=== PATIENT | male | born 1955 | race Caucasian/White ===

== ENCOUNTER → 2016-09-16 | Outpatient (CLI) | payer BC ==
[~2016-09-16] MED LIST: ASPI81TA28 PO; FINA5TAB PO; FLUO40CA8 PO; TAMS0.4C38 PO
== END | disposition home or self-care (01) ==
LOC: C.PATHSPEC 17:02
PROVIDERS: ATTEND Urology
DX: R97.20 Elevated prostate specific antigen [PSA] (principal)

== ENCOUNTER → 2017-05-26 | Outpatient (CLI) | payer BC ==
[~2017-05-26] MED LIST changes: +ACET-749 PO; +CIPR-255 PO; +PHEN95TA14 PO
== END | disposition home or self-care (01) ==
LOC: C.LABSPEC 17:07
PROVIDERS: ATTEND Urology
DX: N40.1 Benign prostatic hyperplasia with lower urinary tract symptoms (principal)

== ENCOUNTER 2017-06-10 21:33 | Emergency (ER) | payer BC ==
[~2017-06-10] VITALS: Ht 182.9 cm; Wt 95.8 kg
[~2017-06-10 21:33] MED LIST changes: -ACETAMINOPHEN 325 MG TAB PO PRN; -ATROPINE SULFATE 0.1 MG/ML 5ML SYR IV PRN; -CIPROFLOXACIN / D5W 400 MG IV SCH; -EpHEDrine SULFATE INJ 50 MG/ML AMP IV PRN; -FENTANYL CITRATE INJ 50 MCG/1 ML 2 ML VIAL IV PRN; -FENTANYL CITRATE INJ 50 MCG/1 ML 2 ML VIAL ONE; -FLUMAZENIL 0.1 MG/1 ML 10 ML VIAL IV ONE; -GLYCOPYRROLATE INJ 0.2 MG/ML VIAL ONE; -LACTATED RINGER'S 1000ML 1,000 ML IV SCH; -LIDOCAINE HCL 2% 2 ML VIAL (20MG/ML) ONE; -MIDAZOLAM HCL 1 MG/ML 2ML VIAL ONE; -ONDANSETRON INJ 2 MG/ML 2 ML VIAL IV PRN; -OXYCODONE/ACETAMINOPHEN 5-325 TAB PO PRN; -PROPOFOL IV EMULSION 10 MG/ML 20 ML VIAL IV ONE; -SODIUM CHLORIDE 0.9% 1000ML 1,000 ML IV SCH
[2017-06-10 22:00] VITALS: TEMP 36.9; Ht 182.9 cm; Wt 95.8 kg
[2017-06-10 23:10] LABS: URINE APPEARANCE CLOUDY (CLEAR); URINE BILIRUBIN NEG (NEG); URINE COLOR ORANGE; URINE EPITHELIAL CELL AUTO 0-5 /lpf (0-5); URINE NITRITE POS (NEG); URINE PH 6.5 (4.5-7.5); URINE SPECIFIC GRAVITY 1.013 (1.000-1.030); UROBILINOGEN NEG (NEG)
[2017-06-10 23:11] LABS: MANUAL MICROSCOPIC REQUIRED? NO; REVIEW REQ? NO
[2017-06-11] VITALS: BP 109/72; PULSE 71; O2SAT 99
--- NOTE | 2017-06-12 00:49 | EMERGENCY ROOM VISIT NOTE ---
ED Visit Note First contact with patient: 22:39 Chief Complaint: I can't urinate. History of Present Illness: Mr. Gillette is a 61-year-old white male who ambulates into the ED accompanied by his with complaints of urinary retention. Patient reports earlier today, approximately 6 hours ago he reports he had a urolift for his enlarged prostrate performed by Dr. Cordova. He does report after returning home he was able to urinate. But since 6 PM, 4 hours ago, he reports he has not been able to urinate. Since that time he reports she's been having increasing urge to urinate but has been unsuccessful. He started experiencing suprapubic pain and it has gradually increased in intensity. Currently he describes his discomfort as a pressure sensation. He rates his discomfort 10/10. His pain is nonradiating. His pain worsens with palpation of the suprapubic area and while he was driving over the hospital bumps in the road also increased his pain. He has not able to identified any alleviating factors related to the pain. He has not taken any medications for pain prior to arrival at the hospital. He denies any associated symptoms including fevers , chills, sweats, skin eruptions, skin color changes, upper abdominal pain, back /flank pain. Review of Systems: As noted above in history of present illness. 8 body systems were reviewed and found to be negative as noted above. Past Medical History: Benign prostatic hypertrophy, status post unspecified hernia repair. Current Medications: Medications Dose Route/Sig Max Daily Dose Days Date Category Tylenol W/Codeine #3 (Acetaminophen/Codeine Phosphate) 300 Mg/30 Mg Tab 2 Tab PO Q6H PRN 06/10/17 Rx Cipro (Ciprofloxacin Hcl) 500 Mg Tab 500 Mg PO BID 06/10/17 Rx Azo Tabs (Phenazopyridine Hcl) 95 Mg Tab 2 Tabs PO Q8 06/10/17 Rx Flomax (Tamsulosin Hcl) 0.4 Mg Cap 0.4 Mg PO BID 06/03/17 Reported Prozac (Fluoxetine HCl) 40 Mg Cap 40 Mg PO QPM 06/03/17 Reported Proscar (Finasteride) 5 Mg Tab 5 Mg PO QPM 06/03/17 Reported Aspirin Ec (Aspirin) 81 Mg Tab 81 Mg PO ON HOLD 06/03/17 Reported Allergies to Medications: Penicillin, sulfa. Social History: Patient is currently employed; he lives with his and feels safe in his home environment; he denies tobacco use and admits to alcohol use. Physical Examination: Vital Signs: Date Time Temp Pulse Resp B/P (MAP) Pulse Ox O2 Delivery O2 Flow Rate FiO2 06/11/17 00:00 71 16 109/72 99 06/10/17 22:00 36.9 84 18 174/105 96 Room Air GENERAL: 61-year-old male in moderate distress due to pain, nontoxic-appearing, afebrile and hemodynamically stable. NEUROLOGICAL: Awake, alert and oriented to person, place and time. Answering questions appropriately and following commands. Normal gait. Good hand eye coordination. No focal motor sensory deficits. SKIN: Warm, dry and pink. No soft tissue eruptions or trauma noted. HEENT: Atraumatic and normocephalic. PERRLA. Sclera white and conjunctiva pink. Airway patent. Speech normal. No lymphadenopathy. Trachea midline. No jugular venous distention. BACK: No tenderness over the bony spine. No CVA tenderness. THORAX: Lungs sounds are clear to auscultation and equal bilaterally with symmetrical chest wall. No crepitus, tenderness, subcutaneous air or deformities noted. HEART: Regular rate and rhythm. No gallops, rubs or murmurs are appreciated. ABDOMEN: Suprapubic distention, soft with moderate to severe tenderness throughout the suprapubic area. Decreased bowel sounds in all quadrants. No guarding, rigidity or organomegaly. EXTREMITIES: Moves all extremities well on command and with purpose. All distal neurovascular statuses are intact and equal bilaterally. ED Course: Patient is assessed as noted above. Patient's medication list was reviewed. Laboratory Testing: Test 06/10/17 22:20 Range/Units Urine Color ORANGE Urine Appearance CLOUDY CLEAR Urine pH 6.5 4.5-7.5 Urine Specific [place] 1.013 1.000-1.030 Urine Protein 2+ NEG Urine Glucose (UA) NEG NEG Urine Ketones NEG NEG Urine Occult Blood 3+ NEG Urine Nitrite POS NEG Urine Bilirubin NEG NEG Urine Urobilinogen NEG NEG Urine Leukocyte Esterase SMALL NEG Urine WBC (Auto) 1-5 0-5 /hpf Urine RBC (Auto) >30 0-4 /hpf Urine Hyaline Casts (Auto) 1-5 0-5 /lpf Urine Epithelial Cells (Auto) 0-5 0-5 /lpf Urine Bacteria (Auto) NEG NEG Cath Urine Culture: Pending. Bladder Scan: 1100 mL. A Espinal catheter was inserted without difficulty and a year-old bag was placed on the catheter. Prior to discharge patient's catheter put out over 1300 mL of bloody urine. Patient was reassessed multiple times during his stay in the emergency department. Patient was educated about today's findings and instructed on his treatment plan ; he verbalized understanding and agreement with this plan. Clinical Impression: Acute urinary retention. Hematuria. Disposition: Patient discharged home in stable condition accompanied by his ; prior to departure he was reassessed and subjectively reported he was pain and symptom-free. Plan: Patient was encouraged to continue his current medications per Patient was encouraged to stay well-hydrated with clear fluid. Patient was encouraged to call Dr. Cordova in the morning and inform them of today's ED visit and request follow-up care. Patient was encouraged return ED for any return of bladder distention symptoms, fevers, vomiting, worsening hematuria or any new/concerning symptoms.
== END 2017-06-11 00:01 | disposition home or self-care (01) ==
LOC: C.EDB 21:34 → C.EDC 06-11 00:01
DX: R33.9 Retention of urine, unspecified (principal); R31.9 Hematuria, unspecified; N40.0 Benign prostatic hyperplasia without lower urinary tract symptoms; Z98.890 Other specified postprocedural states; Z79.899 Other long term (current) drug therapy

== ENCOUNTER → 2017-06-10 | Day surgery (SDC) | payer BC ==
[2017-06-03 12:42] VITALS: BMI 28.0
--- NOTE | 2017-06-03 12:55 | PAT Medication Instructions ---
Service Date Jun 03, 2017. Current Home Medication List Aspirin (Aspirin Ec), 81 MG PO QPM Finasteride (Proscar), 5 MG PO QPM Fluoxetine (Prozac), 40 MG PO QPM Tamsulosin Hcl (Flomax), 0.4 MG PO BID Medication Instructions For Your Scheduled Surgery - Holding the following medications 10 days prior to surgery per surgeon's instructions: Aspirin (Aspirin Ec), 81 MG PO QPM - Take the following medications the morning of surgery with a sip of water OTHERWISE NOTHING TO EAT OR DRINK AFTER MIDNIGHT: Tamsulosin Hcl (Flomax), 0.4 MG PO BID - Take the following medications as scheduled the night before surgery: Finasteride (Proscar), 5 MG PO QPM Fluoxetine (Prozac), 40 MG PO QPM Tamsulosin Hcl (Flomax), 0.4 MG PO BID If you have any questions please call us at [phone] or [phone] or [phone]
--- NOTE | 2017-06-03 13:29 | DIAGNOSTIC IMAGING REPORT ---
CHEST 2 VIEWS ROUTINE CLINICAL HISTORY: 61 years-old Male presenting with preoperative assessment. TECHNIQUE: PA and lateral views of the chest were obtained. COMPARISON: None. FINDINGS: Cardiomediastinal silhouette normal. Mild hyperinflation. No focal infiltrate. No effusion or pneumothorax. Exaggerated thoracic kyphosis without a focal wedging deformity. Upper abdomen normal. IMPRESSION: 1. No acute cardiopulmonary disease. Electronically signed by: Jozef Saravia M.D. 06/03/2017 1:28 PM Dictated Date/Time: 06/03/2017 1:27 PM
[2017-06-03 13:31] LABS: BASO % 0.6 %; BASO ABS # 0.03 K/uL (0-0.2); COMPLETE YES; EOS % 3.9 %; IG% 0.2 %; LYMPH % 36.4 %; LYMPH ABS # 1.95 K/uL (1.2-3.4); MEAN CELL VOLUME 93.3 fL (80-100); MEAN CORPUSCULAR HGB CONC 32.1 g/dl (32-36); MEAN PLATELET VOLUME 9.5 fL (7.4-10.4); MONO % 8.6 %; NEUT % 50.3 %; PLATELET COUNT 244 K/uL (130-400); WHITE BLOOD COUNT 5.35 K/uL (4.8-10.8)
[2017-06-03 14:31] LABS: CALCIUM 8.6 mg/dl (8.5-10.1); CREATININE 1.2 mg/dl (0.60-1.40); POTASSIUM 4.2 mmol/L (3.5-5.1)
[~2017-06-10] VITALS: Ht 182.9 cm; Wt 95.6 kg
[~2017-06-10] MED LIST changes: +ACETAMINOPHEN 325 MG TAB PO PRN; +ATROPINE SULFATE 0.1 MG/ML 5ML SYR IV PRN; +CIPROFLOXACIN / D5W 400 MG IV SCH; +EpHEDrine SULFATE INJ 50 MG/ML AMP IV PRN; +FENTANYL CITRATE INJ 50 MCG/1 ML 2 ML VIAL IV PRN; +FENTANYL CITRATE INJ 50 MCG/1 ML 2 ML VIAL ONE; +FLUMAZENIL 0.1 MG/1 ML 10 ML VIAL IV ONE; +GLYCOPYRROLATE INJ 0.2 MG/ML VIAL ONE; +LACTATED RINGER'S 1000ML 1,000 ML IV SCH; +LIDOCAINE HCL 2% 2 ML VIAL (20MG/ML) ONE; +MIDAZOLAM HCL 1 MG/ML 2ML VIAL ONE; +ONDANSETRON INJ 2 MG/ML 2 ML VIAL IV PRN; +OXYCODONE/ACETAMINOPHEN 5-325 TAB PO PRN; +PROPOFOL IV EMULSION 10 MG/ML 20 ML VIAL IV ONE; +SODIUM CHLORIDE 0.9% 1000ML 1,000 ML IV SCH
[2017-06-10 08:17] VITALS: BP 140/83; PULSE 64; TEMP 36.9; O2SAT 94; Ht 182.9 cm; Wt 95.6 kg
--- NOTE | 2017-06-10 09:56 | History & Physical Bridge Note ---
H&P Re-Evaluation Bridge Note: I have examined the patient, reviewed the History & Physical and in the interval since the performance of the History & Physical I have noted the following changes of clinical significance: No changes noted
--- NOTE | 2017-06-10 10:38 | [facility] Operative Report ---
Operative Report Operative Date Jun 10, 2017. Pre-Operative Diagnosis Benign prostatic hyperplasia Post-Operative Diagnosis Same Procedure(s) Performed Cystoscopy, Urolift Surgeon Orthopedic Designer Surgeon(s) None Estimated Blood Loss 0ML Findings Lateral lobe hypertrophy with a slight median bar Specimens None per surgeon Drains none Anesthesia MAC Complication(s) None Disposition Recovery Room / PACU (stable) Indications Voiding dysfunction, BPH Description of Procedure Patient was identified in the preoperative holding area, appropriate informed consents were reviewed and completed and the patient was transported to the operating suite. Upon arrival he received appropriate preoperative antibiotics in the form of ciprofloxacin. Adequate sedation was achieved, and he was placed in dorsal lithotomy position where he was sterilely prepped and draped in standard fashion. I began the case by passing a cystoscope with 0 lens. Inspection of the urethra revealed healthy-appearing mucosa without evidence of strictures. Prostate was inspected, and he was noted to have lateral lobe hypertrophy. Full inspection of the bladder was carried out. There were no tumors, stones, or other abnormalities. I then exchanged visual obturator for the first uro-lift device. The first suture was deployed on the right side of the prostate approximately 1 cm in from the bladder neck. A mirror image suture was then deployed on the left. A third suture was placed adjacent to the verumontanum on the right. A fourth suture was placed in a mirror image of this location on the left. There was excellent hemostasis. I reinspected the bladder and prostate and confirmed an excellent anterior channel. The bladder was decompressed and the case conclude. The patient was reversed from anesthesia and take to recovery in stable condition. I attest to the content of the Intraoperative Record and any orders documented therein. Any exceptions are noted below.
[2017-06-10 10:40] VITALS: BP 145/78; PULSE 85; TEMP 36.4; O2SAT 93
--- NOTE | 2017-06-10 10:41 | Discharge Instructions ---
Discharge Instructions Date of Service Jun 10, 2017. Admission Reason for Admission: Benign Prostatic Hyperlasia Discharge Discharge Diagnosis / Problem: BPH Discharge Goals Goal(s): Decrease discomfort, Improve function, Increase independence, Improve disease control, Prevent Disease Progression Activity Recommendations Activity Limitations: resume your previous activity Lifting Limitations: none Exercise/Sports Limitations: none May Resume Sexual Activity: when tolerated Shower/Bathe: no limitations Driving or Machine Use: resume 1 day after discharge . Instructions / Follow-Up Instructions / Follow-Up Please keep your previously scheduled follow up appointment with Dr. Cordova Discharge Diet Recommended Diet: Regular Diet Procedures Procedures Performed: Cystoscopy, Urolift Pending Studies Studies pending at discharge: no Medical Emergencies . Who to Call and When: Medical Emergencies: If at any time you feel your situation is an emergency, please call 911 immediately. . Non-Emergent Contact Non-Emergency issues call your: Urologist Call Non-Emergent contact if: you have a fever, temperature is above 101.5, your pain is not controlled, your pain is worsening . . "Provider Documentation" section prepared by Rolando Carlin. . VTE Core Measure Inpt VTE Proph given/why not?: Treatment not indicated [place] Drug Monitoring Program Search Results: patient reviewed within database, no issues identified
--- NOTE | 2017-06-10 11:00 | Anesthesiology Progress Note ---
Anesthesia Post Op Note Date & Time Jun 10, 2017 at 11:00 Vital Signs Pain Intensity: 0 Vital Signs Past 12 Hours Date Time Temp Pulse Resp B/P (MAP) Pulse Ox O2 Delivery O2 Flow Rate FiO2 06/10/17 10:40 36.4 85 18 145/78 93 Room Air 06/10/17 08:17 36.9 64 18 140/83 (102) 94 Room Air Notes Mental Status: alert / awake / arousable, participated in evaluation Pt Amnestic to Procedure: Yes Nausea / Vomiting: adequately controlled Pain: adequately controlled Airway Patency, RR, SpO2: stable & adequate BP & HR: stable & adequate Hydration State: stable & adequate Anesthetic Complications: no major complications apparent
[2017-06-10 11:10] VITALS: BP 144/91; PULSE 87; O2SAT 95
== END | disposition home or self-care (01) ==
LOC: C.ACU 07:42
PROVIDERS: ATTEND Urology
DX: N40.1 Benign prostatic hyperplasia with lower urinary tract symptoms (principal); N13.8 Other obstructive and reflux uropathy; Z88.2 Allergy status to sulfonamides; Z88.0 Allergy status to penicillin; Z85.828 Personal history of other malignant neoplasm of skin; Z79.82 Long term (current) use of aspirin; Z68.28 Body mass index [BMI] 28.0-28.9, adult

== ENCOUNTER → 2017-11-11 | Outpatient (CLI) | payer BC | END | disposition home or self-care (01) | LOC: C.LABSPEC 16:05 | PROVIDERS: ATTEND Physician Assistant | DX: B35.1 Tinea unguium (principal) ==

== ENCOUNTER → 2017-12-09 | Day surgery (SDC) | payer BC ==
[2017-11-20 08:10] VITALS: BMI 28.0
--- NOTE | 2017-11-20 08:40 | PAT Medication Instructions ---
Service Date Nov 20, 2017. Current Home Medication List Aspirin (Aspirin Ec), 81 MG PO QPM Finasteride (Proscar), 5 MG PO QPM Fluoxetine (Prozac), 40 MG PO QPM Multivitamin (Multivitamin), 1 TAB PO QPM Tamsulosin Hcl (Flomax), 0.4 MG PO BID Medication Instructions For Your Scheduled Surgery -Hold the following medications per your surgeon's instructions: Aspirin (Aspirin Ec), 81 MG PO QPM - Hold the following medications the morning of surgery: Tamsulosin Hcl (Flomax), 0.4 MG PO BID - Take the following medications as scheduled the night before surgery: Finasteride (Proscar), 5 MG PO QPM Fluoxetine (Prozac), 40 MG PO QPM Multivitamin (Multivitamin), 1 TAB PO QPM Tamsulosin Hcl (Flomax), 0.4 MG PO BID If you have any questions please call us at [phone] or [phone] or [phone]
[2017-11-20 10:18] LABS: BASO ABS # 0.06 K/uL (0-0.2); EOS % 3.9 %; EOS ABS # 0.23 K/uL (0-0.5); HEMATOCRIT 42.5 % (42-52); HEMOGLOBIN 14.2 g/dL (14.0-18.0); IG# 0.01 K/uL (0.00-0.02); LYMPH % 28.9 %; MEAN CELL VOLUME 92.8 fL (80-100); MEAN CORPUSCULAR HGB CONC 33.4 g/dl (32-36); MEAN PLATELET VOLUME 9.7 fL (7.4-10.4); MONO % 10.2 %; NEUT % 55.8 %; NEUT ABS # 3.29 K/uL (1.4-6.5); PLATELET COUNT 273 K/uL (130-400); RED CELL DISTRIBUTION WIDTH CV 13.9 % (11.5-14.5); RED CELL DISTRIBUTION WIDTH SD 47.4 fL (36.4-46.3); WHITE BLOOD COUNT 5.89 K/uL (4.8-10.8)
[2017-11-20 11:25] LABS: CALCIUM 8.8 mg/dl (8.5-10.1); CREATININE 1.01 mg/dl (0.60-1.40); POTASSIUM 4.4 mmol/L (3.5-5.1)
[~2017-12-09] VITALS: Ht 182.9 cm; Wt 95.3 kg
[~2017-12-09] MED LIST changes: -ACET-749 PO; +ACETAMINOPHEN 325 MG TAB PO PRN; +ATROPINE SULFATE 0.1 MG/ML 5ML SYR IV PRN; +CIPROFLOXACIN / D5W 400 MG IV SCH; +EpHEDrine SULFATE 50MG/5ML SYR ONE; +EpHEDrine SULFATE INJ 50 MG/ML AMP IV PRN; +FENTANYL CITRATE INJ 50 MCG/1 ML 2 ML VIAL IV PRN; +FENTANYL CITRATE INJ 50 MCG/1 ML 2 ML VIAL ONE; +HYDROCODONE/ACETAMIN 5/325MG TAB ONE; +HYDROCODONE/ACETAMIN 5/325MG TAB PO PRN; +LACTATED RINGER'S 1000ML 1,000 ML IV SCH; +LIDOCAINE HCL 2% 2 ML VIAL (20MG/ML) ONE; +MIDAZOLAM HCL 1 MG/ML 2ML VIAL ONE; +MULT-506 PO; +ONDANSETRON INJ 2 MG/ML 2 ML VIAL IV PRN; +PROPOFOL IV EMULSION 10 MG/ML 20 ML VIAL IV ONE; +SODIUM CHLORIDE 0.9% 1000ML 1,000 ML IV SCH
[2017-12-09 10:36] VITALS: BP 136/91; PULSE 65; TEMP 36.6; O2SAT 96; Ht 182.9 cm; Wt 95.3 kg
--- NOTE | 2017-12-09 12:08 | [facility] Operative Report ---
Operative Report Operative Date Dec 09, 2017. Pre-Operative Diagnosis Benign Prostatic Hyperplasia with Urinary Obstruction Post-Operative Diagnosis Same as preop Procedure(s) Performed Button Transurethral Resection Prostate; Cystoscopy Surgeon Dr. Cordova Engineer Technician Surgeon(s) none Estimated Blood Loss 10 ml Specimens None per Surgeon Drains 22F catheter Anesthesia Type General Complication(s) none Disposition yes Recovery Room / PACU Indications Voiding dysfunction Description of Procedure Patient was identified in the preoperative holding area, appropriate informed consents reviewed and completed and the patient was transported to the operating suite. Upon arrival he received appropriate preoperative antibiotics in the form of ciprofloxacin. Adequate general anesthesia was achieved and he was placed in dorsal lithotomy position where he was sterilely prepped and draped in standard fashion. I began the case by passing a 27 Australian resectoscope with 30 lens and visual twx operator. He has no evidence of urethral stricture disease. He is status post prior uro-lift, however it appears that he has enough redundant tissue to collapse the prostatic urethra again. He has a moderately high bladder neck. Full inspection of the bladder was carried out utilizing a 30 and 70 lens, no abnormalities were appreciated. Ureteral orifices were in orthotopic position. I then exchanged the visual obturator for a working element and chose to use a button electrode. I made an incision in the bladder neck at 5 and 7:00 extending this from the bladder neck back to the verumontanum. Caution was used to avoid encroachment upon the ureteral orifices. I then resected the tissue between these 2 incisions flattening about the bladder neck. This drastically improved the appearance of the bladder neck and the patency of the prostatic urethra. I continued to resect the lateral lobes beginning first with the patient's left lobe followed by the right lobe. I encountered the uro-lift suture and clips on both sides and successfully cut the stitch and removed the clips. I then completed my case by trimming the apical tissue and ensuring excellent hemostasis. To conclude the case, I left the bladder full withdrew the cystoscope and placed a 22 Australian Espinal catheter. There were no complications, the patient tolerated the procedure well and was taken to the PACU in stable condition. I attest to the content of the Intraoperative Record and any orders documented therein. Any exceptions are noted below.
--- NOTE | 2017-12-09 12:14 | Discharge Instructions ---
Discharge Instructions Date of Service Dec 09, 2017. Admission Reason for Admission: Benign Prostatic Hypertrophy Discharge Discharge Diagnosis / Problem: BPH Discharge Goals Goal(s): Decrease discomfort, Improve function, Increase independence, Improve disease control, Prevent Disease Progression Activity Recommendations Activity Limitations: resume your previous activity Lifting Limitations: none Exercise/Sports Limitations: none May Resume Sexual Activity: when tolerated Shower/Bathe: no limitations Driving or Machine Use: resume 1 day after discharge . Instructions / Follow-Up Instructions / Follow-Up Please come to Dr. Cordova's office tomorrow for catheter removal. Current Hospital Diet Patient's current hospital diet: Discharge Diet Recommended Diet: Regular Diet Procedures Procedures Performed: Button Transurethral Resection Prostate; Cystoscopy Pending Studies Studies pending at discharge: no Medical Emergencies . Who to Call and When: Medical Emergencies: If at any time you feel your situation is an emergency, please call 911 immediately. . Non-Emergent Contact Non-Emergency issues call your: Urologist Call Non-Emergent contact if: you have a fever, temperature is above 101.5, your pain is not controlled, your pain is worsening . . "Provider Documentation" section prepared by Rolando Carlin. .
[2017-12-09 13:02] VITALS: BP 141/74; PULSE 73; TEMP 36.5; O2SAT 98
--- NOTE | 2017-12-09 13:05 | Anesthesiology Progress Note ---
Anesthesia Post Op Note Date & Time Dec 09, 2017 at 13:05 Vital Signs Pain Intensity: 2 Vital Signs Past 12 Hours Date Time Temp Pulse Resp B/P (MAP) Pulse Ox O2 Delivery O2 Flow Rate FiO2 12/09/17 12:50 142/88 12/09/17 12:47 73 11 12/09/17 12:47 73 11 98 12/09/17 12:45 125/86 12/09/17 12:43 36.0 72 18 132/76 (99) 95 Nasal Cannula 2 12/09/17 12:42 76 9 12/09/17 12:42 76 9 99 12/09/17 12:40 132/76 12/09/17 12:37 83 15 12/09/17 12:37 86 15 90 12/09/17 12:35 141/90 12/09/17 12:32 81 14 12/09/17 12:32 81 14 92 12/09/17 12:31 90 14 91 12/09/17 12:31 88 14 12/09/17 12:30 132/90 12/09/17 12:26 85 15 12/09/17 12:26 83 15 90 12/09/17 12:25 132/90 12/09/17 12:21 80 9 12/09/17 12:21 79 9 91 12/09/17 12:20 133/80 12/09/17 12:16 79 20 12/09/17 12:16 78 20 95 12/09/17 12:15 141/87 12/09/17 12:12 136/85 12/09/17 12:11 88 18 92 12/09/17 12:11 87 18 12/09/17 12:11 36.0 83 16 136/85 (95) 98 Oxymask 10 12/09/17 10:36 36.6 65 18 136/91 (106) 96 Room Air Notes Mental Status: alert / awake / arousable, participated in evaluation Pt Amnestic to Procedure: Yes Nausea / Vomiting: adequately controlled Pain: adequately controlled Airway Patency, RR, SpO2: stable & adequate BP & HR: stable & adequate Hydration State: stable & adequate Anesthetic Complications: no major complications apparent
[2017-12-09 13:30] VITALS: BP 147/85; PULSE 82; O2SAT 97
[2017-12-09 14:00] VITALS: BP 132/85; PULSE 88; TEMP 36.6; O2SAT 92
== END | disposition home or self-care (01) ==
LOC: C.ACU 09:51
PROVIDERS: ATTEND Urology
DX: N40.1 Benign prostatic hyperplasia with lower urinary tract symptoms (principal); N13.8 Other obstructive and reflux uropathy; F41.9 Anxiety disorder, unspecified; Z85.828 Personal history of other malignant neoplasm of skin; Z82.49 Family history of ischemic heart disease and other diseases of the circulatory system; Z80.42 Family history of malignant neoplasm of prostate; Z84.1 Family history of disorders of kidney and ureter; Z88.0 Allergy status to penicillin; Z88.2 Allergy status to sulfonamides; Z79.82 Long term (current) use of aspirin

== ENCOUNTER → 2018-01-20 | Outpatient (CLI) | payer BC ==
[~2018-01-20] MED LIST changes: -ACETAMINOPHEN 325 MG TAB PO PRN; -ATROPINE SULFATE 0.1 MG/ML 5ML SYR IV PRN; -CIPROFLOXACIN / D5W 400 MG IV SCH; -EpHEDrine SULFATE 50MG/5ML SYR ONE; -EpHEDrine SULFATE INJ 50 MG/ML AMP IV PRN; -FENTANYL CITRATE INJ 50 MCG/1 ML 2 ML VIAL IV PRN; -FENTANYL CITRATE INJ 50 MCG/1 ML 2 ML VIAL ONE; -FINA5TAB PO; -HYDROCODONE/ACETAMIN 5/325MG TAB ONE; -HYDROCODONE/ACETAMIN 5/325MG TAB PO PRN; -LACTATED RINGER'S 1000ML 1,000 ML IV SCH; -LIDOCAINE HCL 2% 2 ML VIAL (20MG/ML) ONE; -MIDAZOLAM HCL 1 MG/ML 2ML VIAL ONE; -ONDANSETRON INJ 2 MG/ML 2 ML VIAL IV PRN; -PROPOFOL IV EMULSION 10 MG/ML 20 ML VIAL IV ONE; -SODIUM CHLORIDE 0.9% 1000ML 1,000 ML IV SCH; -TAMS0.4C38 PO
== END | disposition home or self-care (01) ==
LOC: C.LAB1850 11:14
PROVIDERS: ATTEND Nurse Practitioner Adult Health
DX: N40.1 Benign prostatic hyperplasia with lower urinary tract symptoms (principal)